=== PATIENT | female | born 1975 | race Caucasian/White ===

== ENCOUNTER 2017-03-23 19:21 | Emergency (ER) | payer OTHER ==
[~2017-03-23] VITALS: Ht 165.1 cm; Wt 75.0 kg
[~2017-03-23 19:21] MED LIST: BUTA1CAP39 PO; HYDR-3498 PO; NAPR500T8 PO; VIC PO
[2017-03-23 19:25] VITALS: Ht 165.1 cm; Wt 75.0 kg
[2017-03-23] MEDS ORDERED: morphine 4 MG/ML VIAL IV STA (22:01)
[2017-03-23] MEDS ORDERED: ONDANSETRON 4 MG INJ IV STA (22:01)
[2017-03-23] MEDS ORDERED: SOD CHLORIDE 0.9% 1,000 ML IV STA (22:01)
--- NOTE | 2017-03-23 22:53 | RADRPT ---
PROCEDURE: Noncontrast CT Head. CLINICAL INDICATION: Headache TECHNIQUE: Noncontrast CT of the head was obtained. The administered radiation dose was CTDI vol = 43.48 mGy, DLP = 630.2 mGy-cm. One or more of the following dose reduction techniques were used: Aut omated exposure control, Adjustment of the mA and/or kV according to patient size, or Use of iterati ve reconstruction technique. COMPARISON: There are no similar studies submitted for comparison. FINDINGS: There is no acute intracranial hemorrhage, midline shift, or mass effect. No extra-axial collection is seen. The cerebral clayton-white matter differentiation appears preserved. The cerebral sulci and ve ntricles are within normal limits in size and configuration for patient's age. The cerebral attenuat ion is within normal limits. The basal cisterns are preserved. The posterior fossa structures are gr ossly unremarkable, although suboptimally evaluated with CT secondary to beam-hardening artifact. Th e frontal sinuses are hypoplastic. The partially imaged ethmoid sinuses are clear. The visualized ma stoid air cells are clear. No acute fracture or suspicious osseous lesion is identified. IMPRESSION: 1. No evidence of an acute intracranial process. 2. Unremarkable noncontrast CT of the brain. No significant change compared to prior CT brain of 08/2016. RPTAT: [facility] Physician Roberto Date Time Electronically viewed and signed by Physician Roberto on 03/23/2017 22:53 SANDY/
[2017-03-23 23:07] LABS: BASOPHILS % 0.5 % (0.0-2.0); EOSINOPHILS # 0.1 10^3/ul (0.0-0.5); EOSINOPHILS % 1.3 % (0.0-7.0); HEMATOCRIT 35.7 % (37.0-47.0); HEMOGLOBIN 11.6 g/dl (12.0-16.0); LYMPHOCYTES # 2.7 10^3/ul (0.8-2.9); MEAN CORPUSCULAR HGB CONC 32.5 g/dl (32.0-37.0); MEAN CORPUSCULAR VOLUME 86.2 fl (82.0-101.0); MONOCYTE # 0.5 10^3/ul (0.3-0.9); MONOCYTES % 5.7 % (0.0-11.0); NEUTROPHIL # 5.3 10^3/ul (1.6-7.5); NEUTROPHILS % 61.2 % (39.0-77.0); PLATELET COUNT 297 10^3/UL (140-415); RED BLOOD COUNT 4.14 10^6/ul (4.20-5.40); RED CELL DISTRIBUTION WIDTH 14.2 % (11.5-14.5); WHITE BLOOD COUNT 8.7 10^3/ul (4.8-10.8)
[2017-03-23 23:24] LABS: INR 0.94; PROTIME 12.6 Sec (12.2-14.2)
[2017-03-23 23:25] LABS: PARTIAL THROMBOPLASTIN TIME 31.4 Sec (25.0-35.0)
[2017-03-23 23:32] LABS: CALCIUM 8.6 mg/dl (8.4-10.2); CREATININE 0.8 mg/dl (0.44-1.00); POTASSIUM 3.3 mmol/L (3.5-5.1)
[2017-03-23] MEDS ORDERED: IBUP-1542 PO (23:51)
[2017-03-23] MEDS ORDERED: FIORICET PO (23:51)
--- NOTE | 2017-03-24 00:36 | ERD ---
ER Documentation Chief Complaint Date/Time DATE: 03/24/17 TIME: 00:30 Chief Complaint Pt reports migraine with n/v for 3 days HPI Is a 42-year-old female that presents to the ER with a history of migraine headaches complaining of headache for the last 3 days. Patient is deaf and history was taken on a piece of paper. Patient patient relates that her pain is terrible located all over her head. She did have episodes of nausea and nonbilious nonbloody vomiting. Patient usually takes amitriptyline, ibuprofen for her headaches. Patient denies any head trauma. She denies any vision loss or vision changes. This is not the worst headache of the patient's life. Denies any fevers or chills. ROS 12 point review of systems was done, all negative except per HPI. Medications Home Meds Active Scripts Acetamin/Butalbital/Caffeine* (Fioricet*) [id number] Tab, 1 TAB PO Q6H Y for PAIN, #30 TAB Prov:JILL DENTON 03/23/17 Ibuprofen* (Motrin*) 600 Mg Tab, 600 MG PO Q6, #30 TAB Prov:JILL DENTON 03/23/17 Hsfwavaljjrjz-Obxqthnlmn-Ymdzowdj-Codeine* (Fioricet w/ Codeine*) [id number] 30MG Capsule, 1 CAP PO Q6H Y for PAIN LEVEL 1-5, #20 CAP Prov:NOAM [employer] 05/29/15 Hydrocodone Bit-Acetaminophen* ([place]*) 5-325 Mg Tab, 1 TAB PO Q6 Y for PAIN, # 7 TAB Prov:JENNIFFER PULIDO 04/06/15 Reported Medications Naproxen* (Naproxen EC*) 500 Mg Tablet.dr, 500 MG PO BID 06/11/12 Acetaminophen/Hydrocodone (Vicodin) 1 Tab Tab, 1 TAB PO Q8 PRN 06/11/12 Allergies Allergies: Coded Allergies: No Known Allergy (Unverified , 04/05/15) PMhx/Soc History of Surgery: Yes (HERNIA SURGERY) Anesthesia Reaction: No Hx Neurological Disorder: No Hx Respiratory Disorders: No Hx Cardiac Disorders: No Hx Psychiatric Problems: No Hx Miscellaneous Medical Probl: Yes (legally deaf, migraine) Hx Alcohol Use: No Hx Substance Use: No Hx Tobacco Use: No Physical Exam Vitals Vital Signs Date Time Temp Pulse Resp B/P Pulse Ox O2 Delivery O2 Flow Rate FiO2 03/23/17 19:25 98.3 81 16 140/77 98 Physical Exam GENERAL: The patient is well developed and appropriate for usual state of health , in no apparent distress. HEENT: Atraumatic. Conjunctivae are pink. Pupils equal, round, and reactive to light. Extraocular muscles are grossly intact. Bilateral tympanic membranes are clear with no evidence of erythema, bulging or perforation. No sinus tenderness. NECK: C-spine is soft and supple. There is no cervical lymphadenopathy. CHEST: Clear to auscultation bilaterally. There are no rales, wheezes or rhonchi. HEART: Regular rate and rhythm. No murmurs, clicks, rubs or gallops. EXTREMITIES: Equal pulses bilaterally. There is no peripheral clubbing, cyanosis or edema. No focal swelling or erythema. Full range of motion. Grossly neurovascularly intact. NEURO: Alert and oriented. Cranial nerves II through XII are intact. Motor strength in all 4 extremities with 5/5 strength. Sensation grossly intact. Normal speech and gait. Negative Rhomberg. +2 DTRs. SKIN: There is no apparent rash or petechia. The skin is warm and dry. Result Diagram: 03/23/17224303/23/172243 Results 24 hrs Laboratory Tests Test 03/23/17 22:44 White Blood Count 8.710^3/ul Red Blood Count 4.1410^6/ul Hemoglobin 11.6g/dl Hematocrit 35.7% Mean Corpuscular Volume 86.2fl Mean Corpuscular Hemoglobin 28.0pg Mean Corpuscular Hemoglobin Concent 32.5g/dl Red Cell Distribution Width 14.2% Platelet Count 03830^3/UL Mean Platelet Volume 11.0fl Neutrophils % 61.2% Lymphocytes % 31.0% Monocytes % 5.7% Eosinophils % 1.3% Basophils % 0.5% Nucleated Red Blood Cells % 0.0/100WBC Neutrophils # 5.310^3/ul Lymphocytes # 2.710^3/ul Monocytes # 0.510^3/ul Eosinophils # 0.110^3/ul Basophils # 0.010^3/ul Nucleated Red Blood Cells # 0.010^3/ul Prothrombin Time 12.6Sec Prothrombin Time Ratio 1.0 INR International Normalized Ratio 0.94 Activated Partial Thromboplast Time 31.4Sec Sodium Level 140mmol/L Potassium Level 3.3mmol/L Chloride Level 104mmol/L Carbon Dioxide Level 28mmol/L Anion Gap 11 Blood Urea Nitrogen 14mg/dl Creatinine 0.80mg/dl Glucose Level 93mg/dl Calcium Level 8.6mg/dl Current Medications Medications (Trade) Dose Ordered Sig/Fani Route PRN Reason Start Time Stop Time Status Last Admin Dose Admin Sodium Chloride (NS) 1,000 ml @ 1,000 mls/hr Q1H STAT IV 03/23/17 22:01 03/23/17 23:00 DC 03/23/17 23:06 Ondansetron HCl (Zofran Inj) 4 mg ONCE STAT IV 03/23/17 22:01 03/23/17 22:02 DC 03/23/17 23:06 Morphine Sulfate (morphine) 6 mg ONCE STAT IV 03/23/17 22:01 03/23/17 22:02 DC 03/23/17 23:05 Procedures/MDM Differential Diagnosis includes but is not limited to; tension headache, migraine headache, cluster headache, sinus headache, nonspecific febrile headache, trigeminal neurologia, subdural hematoma, subarachnoid bleeding, meningitis, encephalitis. Patient is neurologically intact with no focal neurological deficits. Likely a migraine headache. Patient has a history of migraine headaches, patient's physical examination was benign. Patient is afebrile and extremely well-appearing. She will be sent home with ibuprofen and Fioricet. Patient is to follow-up with her primary care doctor within 1-2 days or return to ER sooner if symptoms worsen. My medical decision making was shared with the patient, she understands and agrees with plan. Departure Diagnosis: Primary Impression: Migraine Condition: Stable Patient Instructions: Migraines and Cluster Headaches Additional Instructions: Call your primary care doctor TOMORROW for an appointment during the next 1-2 days.See the doctor sooner or return here if your condition worsens before your appointment time. JILL DENTON Mar 24, 2017 00:36
[2017-03-24] MEDS ORDERED: KETOROLAC 30 MG INJ IV STA (00:43)
[2017-03-24 00:57] VITALS: BP 115/74; PULSE 60; RESP 16
== END 2017-03-24 01:03 | disposition home or self-care (01) ==
LOC: FTE 19:21
DX: G43.909 Migraine, unspecified, not intractable, without status migrainosus (principal); R06.02 Shortness of breath
CPT/HCPCS: 36415; 70450; 80048; 85025; 85610; 85730; 96374; 96375; J1885; J2270; J2405; J7030; Z7502